=== PATIENT | female | born 1960 | race Caucasian/White ===

== ENCOUNTER 2018-04-23 18:28 | Emergency (ER) | payer OTHER ==
[~2018-04-23] VITALS: Ht 170.2 cm; Wt 81.0 kg
[2018-04-23] MEDS ORDERED: ALPRAZOLAM 0.5 MG TABLET PO ONE (19:15)
[2018-04-23] MEDS ORDERED: METHYLPREDNISOLONE SOD SUCC 125 MG/2 ML VIAL IV ONE (19:15)
[2018-04-23] MEDS ORDERED: FAMOTIDINE 20MG/2ML VIAL IV SCH (19:15)
[2018-04-23 19:25] LABS: EOSINOPHILS % 1.7 % (0.0-5.0); HEMATOCRIT. 43.9 % (36.0-48.0); HEMOGLOBIN. 14.2 g/dL (12.0-16.0); LYMPHOCYTES % 20.3 % (20.0-50.0); MEAN CORPUSCULAR HEMOGLOBIN 27.9 pg (28.0-32.0); MEAN CORPUSCULAR VOLUME 86.2 fL (81.0-99.0); MEAN PLATELET VOLUME 8.9 fl (7.4-10.4); PLATELET 279 x1000/uL (130-400); RED BLOOD CELL COUNT 5.09 mill/uL (4.2-5.4); RED CELL DISTRIBUTION WIDTH 14.2 % (11.6-14.6)
[2018-04-23 19:28] LABS: CHLORIDE 103 mEq/L (98-107)
[2018-04-23 21:00] VITALS: BP 115/77
== END 2018-04-23 20:59 | disposition home or self-care (01) ==
LOC: ER 18:28
DX: R06.02 Shortness of breath (principal); R07.89 Other chest pain; T78.40XA Allergy, unspecified, initial encounter; X58.XXXA Exposure to other specified factors, initial encounter; F41.9 Anxiety disorder, unspecified; E11.9 Type 2 diabetes mellitus without complications
CPT/HCPCS: 36415; 71045; 80053; 83880; 84484; 85025; 93005; 96374; 96375; 99284; J2930; J3490